=== PATIENT | female | born 1990 | race Two or more races ===

== ENCOUNTER 2025-04-11 07:50 | Day surgery (SDC) | payer MEDICAID, SELFPAY ==
[2025-04-10 09:01] VITALS: BMI 25.7
[2025-04-10 10:26] LABS: Basophils # (Auto) 0.1 Thou/mm3 (0.0-0.2); Basophils % (Auto) 1 % (0-2.5); Eosinophils # (Auto) 0.1 Thou/mm3 (0.0-0.5); Eosinophils % (Auto) 1 % (0-10); Hematocrit 38.1 % (36.0-46.0); Hemoglobin 12.0 g/dL (12.0-16.0); Immature Granulocytes Auto 0.02 Thou/mm3 (0.00-0.00); Lymphocytes # (Auto) 2.4 Thou/mm3 (1.0-4.8); Lymphocytes % (Auto) 30 % (10-50); Mean Corpuscular HGB Conc 31.5 g/dl (31.0-37.0); Mean Corpuscular Hemoglobin 25.3 pg (25.0-35.0); Mean Corpuscular Volume 80 fL (80-100); Monocytes # (Auto) 0.4 Thou/mm3 (0.0-0.8); Monocytes % (Auto) 5 % (0-12); Neutrophils # (Auto) 5.0 Thou/mm3 (1.8-7.7); Neutrophils % (Auto) 63 % (37-80); Nucleated Red Blood Cell # 0.00 Thou/mm3 (0.00-0.00); Nucleated Red Blood Cell % 0 /100 WBC (0); Platelet Count 290 Thou/mm3 (140-440); RDW Standard Deviation 44.9 fL (36.4-46.3); Red Blood Count 4.74 Miln/mm3 (4.00-5.20); White Blood Count 7.9 Thou/mm3 (3.6-11.0)
[2025-04-10 10:33] LABS: INR 1.0 (0.9-1.3); Partial Thromboplastin Time 29.8 Seconds (22.0-36.0); Prothrombin Time 10.9 Seconds (9.0-12.2)
[2025-04-10 10:48] LABS: Alanine Aminotransferase 23 U/L (10-49); Albumin, Serum 4.5 gm/dL (3.5-5.0); Albumin/Globulin Ratio 1.6 (1.2-2.2); Alkaline Phosphatase 80 U/L (46-116); Anion Gap 9 (7-16); Aspartate Amino Transferase 25 U/L (0-34); BUN/Creatinine Ratio 16 Ratio (12-20); Bilirubin,Total 0.4 mg/dL (0.3-1.2); Blood Urea Nitrogen 14 mg/dL (9-23); Calcium 10.0 mg/dL (8.3-10.6); Calcium (Corrected) 10.0 mg/dL (8.5-10.1); Carbon Dioxide 27.1 mMol/L (20.0-31.0); Chloride 105 mMol/L (98-107); Creatinine (Component) 0.9 mg/dL (0.6-1.3); Estimated Creatinine Clearance 78.0 mL/min (>60); Globulin 2.9 gm/dL (2.3-3.5); Glucose 73 mg/dL (74-106); Osmolality,Calculated 280 (275-295); Potassium 3.5 mMol/L (3.4-5.1); Sodium 141 mMol/L (136-145); Total Protein 7.4 gm/dL (5.7-8.2); eGFR > 60 See Note
--- NOTE | 2025-04-10 12:19 | SUR.PREOP ---
Pt notified to come in tomorrow at 0800 for surgery.
[2025-04-11] VITALS (10 sets, daily range): BP systolic 104–122; BP diastolic 67–86; PULSE 61–87; RESP 13–19; TEMP 36.5–36.7; O2SAT 97–100; BMI 25.7
[2025-04-11] MEDS: RINGERS LACTATED 1000 ML 1,000 ML 20 ML IV (09:12)
--- NOTE | 2025-04-11 12:15 | PD.SUROPNT ---
Date of Procedure 04/11/25 Pre Op Diagnosis Symptomatic umbilical hernia Post Op Diagnosis Same Procedure Repair of the symptomatic umbilical hernia with primary closure Findings Patient was found to have a defect measuring 2 cm in length and the fascia was easily approximated Procedure Description Or the patient was brought to the operating room endotracheal anesthesia was given. Abdomen was prepped with ChloraPrep solution and draped in a sterile manner. Timeout was performed. The made a curved incision below the umbilicus and the fascia was cleaned the hernia was identified and it was protruding out with the protrusion of the fascia. I opened up the hernial sac and found no contents. Then I excised the sac all the way down to the fascia which was easily approximated without any tension with 4 sutures of 0 Ethibond. Then the subcutaneous tissue was approximated with 3-0 chromic on the skin was closed with 4-0 Monocryl and dressing was applied with Adaptic and 4 x 4. Patient tolerated the procedure well Anesthesia GETA Pathology / specimen None Estimated Blood Loss 20 Surgeon Ricky Glez MD Surgical Staff Operation Date: 04/11/25 10:15 Case Staff STEREO PLOTTER OPERATOR: Parrish Lira Jr, RN First Assistant: Ailyn Hurt
--- NOTE | 2025-04-11 12:25 | SUR.PHASEI ---
1224 patient arrived to recovery resting comfortably in [facility], patient sleeping comfortably in [facility], able to arouse with verbal prompting- then drifts back to sleep, oxygen therapy initiated- oxy mask 8L via oxy mask, breathing unlabored, vital signs stable, denies pain and nausea, dressing intact to umbilicus; sutures, adaptic, gauze, medipore tape, no bleeding noted, report received from Adelso FERRARI and Parrish GRAHAM
--- NOTE | 2025-04-11 14:10 | SUR.PHASEII ---
1410 patient meets discharge criteria from recovery, awake and alert, breathing unlabored, vital signs stable, denies pain and nausea, dressing intact; no bleeding, drinking fluids; denies nausea, assisted with dressing into her clothing by her mother, discharge instructions given to patient and patients mother, mother signed discharge instructions. Patient given all her belongings prior to dishcarge, transported via wheelchair and left in a private vehicle.
== END 2025-04-11 14:10 | disposition home or self-care (01) ==
PROVIDERS: PCP Internal Medicine Nephrology; Referring Provider Surgery; Visit Provider Surgery
PROC: (CPT 49591; principal; 2025-04-11 10:00)
DX: K42.9 Umbilical hernia without obstruction or gangrene (principal)
CPT/HCPCS: 49591; 36415; 80053; 85025; 85610; 85730; A4649; J0690; J1100; J1885; J2250; J2405; J2704; J2765; J3010; J3490; J7120